=== PATIENT | female | born 1995 | race African-American/Black ===

== ENCOUNTER 2021-11-19 13:38 | Emergency (ER) | payer BC ==
[~2021-11-19] VITALS: Ht 160 cm; Wt 56.4 kg
[2021-11-19 13:48] VITALS: TEMP 98.7
[2021-11-19 18:20] VITALS: BP 130/77; PULSE 88
== END 2021-11-19 18:20 | disposition home or self-care (01) ==
LOC: COL.ER 13:38
DX: O21.0 Mild hyperemesis gravidarum (principal); Z28.310 Unvaccinated for COVID-19; Z3A.01 Less than 8 weeks gestation of pregnancy
CPT/HCPCS: J2765; J7120